=== PATIENT | female | born 1925 | race Caucasian/White ===

== ENCOUNTER 2016-11-18 08:30 | Emergency (ER) | payer MEDICARE, OTHER ==
[2016-11-18 08:44] VITALS: BP 146/116
--- NOTE | 2016-11-18 09:00 | EDM.PDOC ---
ED HPI HEAD INJURY - General Chief Complaint: Head Injury Stated Complaint: HEAD/RIGHT HAND INJURY FROM FALL Time Seen by Provider: 11/18/16 08:43 Source of Information: Reports: Patient History Limitations: Reports: No limitations - History of Present Illness INITIAL COMMENTS - FREE TEXT/NARRATIVE: The patient presents with a head injury and right hand injury. She says last night at about 1:30am she fell. She says she lost her balance and fell. She has a mild headache now with a hemotoma to the right frontal region. She also has a large contusion to her right hand. She has a contusion to the left knee but she has no pain and she can walk fine. She denies neck or back pain. She has no chest pain, shortness of breath, abdominal pain, nausea or vomiting. She is on eliquis for A-fib. Timing/Duration: Reports: Hour(s): (early this morning) Location: Reports: frontal Quality: Reports: ache Severity: mild Place of Occurrence: home Improves with: none Worsens with: none Context: Reports: fall Associated Symptoms: Reports: headache (Mild) - Related Data Allergies/ADRs: Allergies Allergy/AdvReac Type Severity Reaction Status Date / Time Sulfa (Sulfonamide Allergy Hives Verified 11/18/16 08:44 Antibiotics) Home Meds: Home Meds . [Unable to Verify Home Med List] 01/11/16 [History] Past Medical History - Past Health History Medical/Surgical History: Denies Medical/Surgical History Cardiovascular History: Reports: Afib Neurological History: Reports: CVA - Past Surgical History GI Surgical History: Reports: Appendectomy, Cholecystectomy Female Surgical History: Reports: Hysterectomy Social & Family History - Tobacco Use Smoking Status *Q: Never Smoker Second Hand Smoke Exposure: No - Caffeine Use Caffeine Use: Reports: None - Recreational Drug Use Recreational Drug Use: No ED ROS GENERAL - Review of Systems Review Of Systems: See Below Constitutional: Reports: no symptoms HEENT: Reports: Other (Contusion to right forehead) Respiratory: Reports: No Symptoms Cardiovascular: Reports: No symptoms Endocrine: Reports: no symptoms GI/Abdominal: Reports: No symptoms : Reports: no symptoms Musculoskeletal: Reports: other (Contusion to right hand and left knee) Skin: Reports: no symptoms Neurological: Reports: No Symptoms ED EXAM, HEAD INJURY - Physical Exam Exam: See Below Exam Limited By: No limitations General Appearance: alert, no apparent distress Head: other (Contusion to the right forehead) Ears: normal external exam Nose: other (Mild ecchymosis but no pain with palaption) Neck: non-tender, normal alignment, normal inspection Respiratory: no respiratory distress, lungs clear, normal breath sounds Cardiovascular: regular rate, rhythm, no edema, no murmur GI/Abdominal Exam (Abbreviated): soft, non tender, no organomegaly, no mass Back Exam: normal inspection Extremities: other (Contusion to the right dorsal hand. Good sensation and capillary refill distally. She does have some mild pain upon palpation to her right hand. She has ecchymosis to her left knee with no pain upon palpation.) Course - Vital Signs Last Recorded V/S: Last Vital Signs Temp 97.6 F 11/18/16 08:40 Pulse 111 H 11/18/16 08:40 Resp 16 11/18/16 08:40 BP 146/116 H 11/18/16 08:40 Pulse Ox 97 11/18/16 08:40 - Orders/Labs/Meds Orders: Active Orders 24 hr Category Date Time Status Hand Comp Min 3V Rt [CR] Stat Exams 11/18/16 08:53 Taken - Re-Assessments/Exams Free Text/Narrative Re-Assessment/Exam: 11/18/16 09:00 I have ordered a CT of her head and x-ray of her right hand. She has a ring on yet. My nurse will try to remove that. 11/18/16 10:15 Her ring was removed and there is no fracture to her hand. Her CT shows senescent change appearing fairly similar to prior head CT study. No acute intracranial abnormality is identified. Soft tissue swelling and hematoma within the right frontal scalp. No underlying calvarial fracture is seen. I will put an LIANG bandage on her hand and discharge her home. Departure - Departure Time of Disposition: 10:20 Disposition: Home, Self-Care 01 Condition: good Clinical Impression: Fall Qualifiers: Encounter type: initial encounter Qualified Code(s): W19.XXXA - Unspecified fall, initial encounter Contusion of head Qualifiers: Encounter type: initial encounter Contusion of head detail: other part of head Qualified Code(s): S00.83XA - Contusion of other part of head, initial encounter Contusion of hand, right Qualifiers: Encounter type: initial encounter Qualified Code(s): S60.221A - Contusion of right hand, initial encounter Contusion of left knee Qualifiers: Encounter type: initial encounter Qualified Code(s): S80.02XA - Contusion of left knee, initial encounter Referrals: Agustin Stanford Jr, MD [Primary Care Provider] - 1 Week Forms: ED Department Discharge Additional Instructions: Wear an liang bandage on your hand for about 3 days. Ice your hand and other areas that are injured for 15 minutes every other hour while awake for 2 days. Elevate you hand above your heart as much as possible for the next couple of days. Have your walker at the bed side to help steady you when you get up. Please return if you are worse. - My Orders Last 24 Hours: My Active Orders 11/18/16 08:53 Hand Comp Min 3V Rt [CR] Stat - Assessment/Plan Last 24 Hours: My Active Orders 11/18/16 08:53 Hand Comp Min 3V Rt [CR] Stat
--- NOTE | 2016-11-18 09:57 | CT ---
Head CT Technique: Multiple axial sections through the brain were obtained. Intravenous contrast was not utilized. Comparison: Previous head CT study of 01/11/16. Findings: Ventricles along with basal cisterns and sulci over the convexities are mildly to moderately prominent. Several old lacunar infarcts are noted within the basal ganglia. Diminished density is noted within the periventricular and subcortical white matter compatible with small vessel ischemic demyelination change. Old infarct is noted within the right parietal region. Small old infarct noted within the posterior left occipital region. No other abnormal parenchymal densities are seen. No evidence of intracranial hemorrhage. No midline shift or mass effect is seen. Soft tissue swelling and hematoma is noted within the right frontal scalp. No acute calvarial abnormality is seen. Visualized paranasal sinuses and mastoid sinuses are clear. Middle ear cavities are clear. Atherosclerotic calcification is seen within the carotid siphon. Impression: 1. Senescent change as described above appearing fairly similar to prior prior head CT study. 2. No acute intracranial abnormality is identified. 3. Soft tissue swelling and hematoma within the right frontal scalp. No underlying calvarial fracture is seen. Diagnostic code #3
--- NOTE | 2016-11-19 08:00 | CR ---
Right hand: Four views of the right hand were obtained. Comparison: No previous study. Diffuse joint space narrowing is seen throughout the MCP, PIP and DIP joints. Prominent degenerative change at the CMC joint of the thumb as well as joint space narrowing seen off the distal navicular bone. Bony structures are osteopenic. Diffuse soft tissue swelling noted dorsally. No acute fracture, dislocation or other bony abnormality is seen. Impression: 1. Diffuse degenerative change. 2. Soft tissue swelling. 3. No acute bony abnormality is identified on four-view right hand study. Diagnostic code #3
== END 2016-11-18 10:43 | disposition home or self-care (01) ==
LOC: JD.ED 08:30
DX: S00.83XA Contusion of other part of head, initial encounter (principal); S60.221A Contusion of right hand, initial encounter; I48.91 Unspecified atrial fibrillation; Z86.73 Personal history of transient ischemic attack (TIA), and cerebral infarction without residual deficits; Z90.49 Acquired absence of other specified parts of digestive tract; Z90.710 Acquired absence of both cervix and uterus; Z88.2 Allergy status to sulfonamides; W19.XXXA Unspecified fall, initial encounter; Y92.009 Unspecified place in unspecified non-institutional (private) residence as the place of occurrence of the external cause
CPT/HCPCS: 70450; 70450-26; 73130-26-RT; 73130-RT; 99283; 99284-25